=== PATIENT | male | born 1940 | race Caucasian/White ===

== ENCOUNTER 2017-05-28 13:10 | Emergency (ER) | payer OTHER, BC ==
[~2017-05-28] VITALS: Ht 190.5 cm; Wt 103.4 kg
[2017-05-28 13:24] VITALS: Ht 190.5 cm; Wt 103.4 kg
[2017-05-28 14:17] VITALS: BP 146/84
== END 2017-05-28 14:17 | disposition home or self-care (01) ==
LOC: ED 13:10
DX: S51.011A Laceration without foreign body of right elbow, initial encounter (principal); W01.0XXA Fall on same level from slipping, tripping and stumbling without subsequent striking against object, initial encounter; Y93.89 Activity, other specified; Y92.89 Other specified places as the place of occurrence of the external cause; Y99.8 Other external cause status
CPT/HCPCS: 90715; J2001